=== PATIENT | male | born 2000 | race Caucasian/White ===

== ENCOUNTER 2020-09-03 13:06 | Emergency (ER) | payer BC, SELFPAY ==
[2020-09-03 13:16] VITALS: BP 113/59; PULSE 73; RESP 16; TEMP 36.9; O2SAT 99
--- NOTE | 2020-09-03 13:39 | ED.URI ---
HPI - URI/Sore Throat General Chief Complaint: Upper Respiratory Infection Stated Complaint: FEVER/COUGH/CHEST PAIN/CONGESTION Source: patient and RN notes reviewed Limitations: no limitations History of Present Illness HPI Narrative: The patient, previously mostly healthy, presents with a 4-day history of cough, fever measured to 101 and chest pains that have since resolved. He has been half vaccinated; no chest pain now,N/V/D, S OB, earache, loss of taste or smell. Symptoms are mild, associated with slight congestion; he declines PCR testing [referring to his mother]. Related Data Allergies Allergy/AdvReac Type Severity Reaction Status Date / Time tramadol Allergy Unknown seizure Verified 04/30/20 13:46 No Known Allergies Allergy Verified 12/31/15 09:11 Review of Systems Review of Systems: Narrative: General/Constitutional: No weight loss, EARLIER fever Eyes: N0: Redness,discharge Ears/Nose/Throat: No: Epistaxis,ear discharge Respiratory: Denies: Hemoptysis Gastrointestinal: No Vomiting, Bleeding-rectal Skin: No Lumps, eruption Neurologic: No Focal Weakness,Sz Hematologic: Denies: Petechiae/Purpura Psychiatric: No: Suicida ideationl All Other Systems: Reviewed and Negative PMFSH Past Medical History Medical History (Updated 09/03/20 @ 13:43 by Arpit Cui MD) ADD (attention deficit disorder) without hyperactivity Anxiety disorder STD (sexually transmitted disease) Surgical History Surgical History H/O shoulder surgery Hx of appendectomy (~2007) Family History Family History Grandparent Family history of headache disorder Mother Patient's mother is in good health Sibling Patient's sister is in good health Social History Social History (Updated 04/30/20 @ 13:48 by Jessie Cervantes CMA) Smoking status: Never smoker Second hand tobacco smoke exposure: No Alcohol intake: never Gender identity (if verbalized by the patient): Male Exam Narrative: Exam Narrative: General Appearance: Well appearing, Well nourished EYE: PERRLA, Conjunctiva clear Ears: Auditory canal normal, TM normal Nose: Rhinorrhea, Mucousal erythema Mouth/Throat: MM moist, Uvula midline, Pharyngeal erythema Neck: Supple, No adenopathy Respiratory: No respiratory distress, Breath sounds equal, Clear to auscultation Cardiovascular: RRR, No JVD Musculoskeletal: Non tender, Normal strength Skin: Warm, Dry Neurological: A&O x3, CN II-XII intact Psychiatric: Normal mood, Normal affect Course Vital Signs Vital signs: Vital Signs Temperature 98.4 F 09/03/20 13:16 Pulse Rate 73 09/03/20 13:16 Respiratory Rate 16 09/03/20 13:16 Blood Pressure 113/59 L 09/03/20 13:16 Pulse Oximetry 99 09/03/20 13:16 Temperature 98.4 F 09/03/20 13:16 Pulse Rate 73 09/03/20 13:16 Respiratory Rate 16 09/03/20 13:16 Blood Pressure 113/59 L 09/03/20 13:16 Pulse Oximetry 99 09/03/20 13:16 MDM - URI/Sore Throat Lab Data Labs: Lab Results 09/03/20 Range/Units 13:20 POC SARS CoV-2 Ag Negative (Negative) Discharge Plan Discharge Clinical Impression: Upper respiratory infection Qualifiers: URI type: unspecified URI Qualified Code(s): J06.9 - Acute upper respiratory infection, unspecified Patient Disposition: Home, Self-Care Condition: Stable Instructions: Acute Bronchitis (ED) Prescriptions: New azithromycin 250 mg tablet See Rx Instructions .ROUTE .COMPLEX Qty: 6 RF: 0 codeine-guaifenesin 10-100 mg/5 mL liquid 7.5 ml PO Q6H PRN (Reason: cough) Qty: 118 RF: 0 azelastine 137 mcg (0.1 %) aerosol,spray 137 mcg NASAL Q12H Qty: 30 RF: 0 No Action dextroamphetamine-amphetamine [Adderall XR] 20 mg capsule,extended release 24hr 20 mg PO QAM Qty: 30 RF: 0 Other Ambulatory Orders: SARS-CoV-2 RNA, Qual RT-PCR (Routine) Locatio
== END 2020-09-03 13:48 | disposition home or self-care (01) ==
PROVIDERS: Emergency Provider Emergency Medicine; PCP Family Medicine
DX: J06.9 Acute upper respiratory infection, unspecified (principal); Z20.822 Contact with and (suspected) exposure to COVID-19
CPT/HCPCS: 87426; 99213; C9803; G0463

== ENCOUNTER 2022-11-06 15:20 | Emergency (ER) | payer BC, SELFPAY ==
--- NOTE | ~2022-11-06 | XR_ITS ---
EXAM: XR heel RT min 2V DATE: 11/06/2022 15:50 HISTORY: jumped off retaining wall 3 weeks ago . COMPARISON: None available. FINDINGS: Normal mineralization. No fracture or dislocation. No lytic or blastic lesion. Joint space s are maintained. No erosion or periosteal change. Soft tissues within normal limits. IMPRESSION: No acute osseous finding in the right heel. Reviewed, dictated and finalized at location K.
[2022-11-06 15:35] VITALS: BP 133/93; PULSE 119; RESP 16; TEMP 36.9; O2SAT 99
--- NOTE | 2022-11-06 16:04 | ED.EXTPRO ---
HPI - Extremity Problem General Chief complaint: Extremity Problem,Nontraumatic Stated complaint: Heel pain Time Seen by Provider: 11/06/22 16:05 Source: patient, RN notes reviewed and old records reviewed Mode of arrival: ambulatory Limitations: no limitations History of Present Illness HPI Narrative: 22-year-old male presents to the [facility] with complaints of right heel pain after jumping off a retaining wall and landing flat foot on his right foot 3 weeks ago. For several days he has had extreme pain, taken ibuprofen. States the pain has improved, worse when he walks on it. States it is worse in the morning. No bruising or swelling noted Related Data Home Medications Medication Instructions Recorded Confirmed No Home Medications 11/06/22 11/06/22 Allergies Allergy/AdvReac Type Severity Reaction Status Date / Time tramadol Allergy Unknown seizure Verified 11/06/22 15:43 Review of Systems Review of Systems: All systems reviewed & are unremarkable except as noted in HPI and below Constitutional: Constitutional: Reports no additional constitutional complaints Eyes: Eyes: Reports no additional eye complaints ENT: Reports system reviewed and no additional complaints, except as documented Cardiovascular: Cardiovascular: Reports no additional cardiovascular complaints, Denies chest pain and Denies dyspnea Respiratory: Respiratory: Reports no additional respiratory complaints, Denies chest congestion, Denies cough and Denies dyspnea Gastrointestinal: Gastrointestinal: Reports no additional gastrointestinal complaints, Denies abdominal pain, Denies nausea and Denies vomiting Musculoskeletal: Musculoskeletal: Reports as per HPI and Reports arthralgias (Right calcaneus) Integumentary/Breasts: Skin/Breast: Reports system reviewed and no additional complaints, except as docu Neurologic: Reports system reviewed and no additional complaints, except as documented Psychiatric: Psychiatric: Reports no additional psychiatric complaints Allergic/Immunologic: Allergic/Immunologic: Reports no additional allergic/immunologic complaints [facility] Past Medical History Medical History ADD (attention deficit disorder) without hyperactivity Anxiety disorder STD (sexually transmitted disease) URI (upper respiratory infection) Surgical History Surgical History H/O shoulder surgery Hx of appendectomy (~2007) Family History Family History Grandparent Family history of headache disorder Mother Patient's mother is in good health Sibling Patient's sister is in good health Social History Social History Smoking status: Never smoker Second hand tobacco smoke exposure: No Alcohol intake: never Occupation/Education: student Gender identity (if verbalized by the patient): Male Comments At the time of my signature, I reviewed and agree with the nursing past medical, surgical, social, and family history. There is no relevant family history pertinent to the patient complaint. Exam Const: General: cooperative, healthy appearing, comfortable, no acute distress, well developed, alert and well nourished Nutritional Appearance: well nourished Orientation/consciousness: patient oriented x3 Limitations: no limitations HENMT: Head: normal to inspection Ears: hearing grossly normal bilaterally and external ears normal Face/Nose/Sinus: Normal external nose present, Normal nares present, Normal nasal mucous membranes and turbinates present, normal facial exam and face symmetric Face and sinus: normal facial exam and face symmetric Eyes: General: appearance normal, both eyes and all related structures Alignment and Position: alignment normal Periorbital: periorbital findings normal Pupils: Equal, round and reacti
== END 2022-11-06 16:48 | disposition home or self-care (01) ==
PROVIDERS: Emergency Provider Nurse Practitioner; PCP Family Medicine
DX: S90.31XA Contusion of right foot, initial encounter (principal); W17.89XA Other fall from one level to another, initial encounter
CPT/HCPCS: 73650; 99213; G0463

== ENCOUNTER 2024-06-13 11:42 | Outpatient (CLI) | payer OTHER, SELFPAY ==
--- OUTSIDE RECORDS SUMMARY | 2024-06-13 13:05 | XMS_ITS | Clinical Summary ---
Author Organization [facility] Address [address] [place] [address] Care Team Providers Care Information Technology Assistant Name Role Phone Alia Fuentes MD Primary Care Provider [phone] Source Comments [facility],non-owned Affiliates and Associated Physician Practices is amultiple site organization consisting of ambulatory clinics and hospital sitesin [place], [place], [place] and [place]. This disclosure is being madepursuant to the Care Everywhere program and may not contain all information available regarding this patient. Last updated 17.[facility] [employer] Allergies Active Allergy Reactions Criticality Noted Date Comments Tramadol Seizures High 10/25/2017 Medications * Be aware that medications may not be up to date on this document. Alwaysverify current medications with the patient. lidocaine visc 2%-diphenhydrami ne 2.5mg/ml-alum&mg hydroxide 400/400 oral susp 1:1:1 suspensionIndica tions:Strep pharyngitis 5 mL every 6 hours as needed Swish and Gargle Q 4-6 hours as needed for sore throat 120 mL 10/25/2017 Active Immunizations Immunization Administration Dates Next Due INFLUENZA VACCINE, QUADR. (F LUZONE; FLULAVAL; FLUARIX; AFLURIA QUADRIVALENT; 6MO+), 0.5 ML (IIV4) 01/09/2018 Social History Tobacco Use Types Packs/Day Years Used Date Smoking Tobacco: Never Smokeless Tobacco: Never Comments:non smoking househo ld Sex and Gender Information Value Date Recorded Sex Assigned at Not on file Legal Sex Male 11:44 PM CDT Gender Identity Not on file Sexual Orientation Not on file Last Filed Vital Signs Vital Sign Reading Time Taken Comments Blood Pressure 118/72 10/25/2017 10:19 AM CDT Pulse 59 10/25/2017 10:19 AM CDT Temperature 36.8 C (98.2 F) 10/25/2017 10:19 AM CDT Respiratory Rate 16 10/25/2017 10:19 AM CDT Oxygen Saturation - - Inhaled Oxygen Concentration - - Weight 79.4 kg (175 lb) 10/25/2017 10:19 AM CDT Height 180.3 cm (5' 11 ) 10/25/2017 10:19 AM CDT Body Mass Index 24.41 10/25/2017 10:19 AM CDT Plan of Treatment Health Maintenance Due Date Last Done Comments HIV SCREENING 2013 HPV VACCINE (1 - Male 3-dose series) 2013 HEPATITIS C SCREENING 01/29/2016 DTAP/TDAP/TD VACCINES (1 - Tdap) 2017 HEPATITIS B VACCINE (1 of 3 - 19+ 3-dose series) 2017 COVID-19 VACCINE (1 - 2023-2 5 season) 2023 DEPRESSION SCREENING 02/29/2024 INFLUENZA VACCINE (Season Ended) 2024 01/10/20 18 ZOSTER VACCINE (1 of 2) 02/03/2048 HIB VACCINE Aged Out No longer eligi ble based on patient's age to complete this topic MENINGOCOCCAL (Group B) VACC INE SHARED DECISION-MAKING Aged Out No longer eligibl e based on patient's age to complete this topic MENINGOCOCCAL GROUPS A/C/Y/W VACCINE Aged Out No longer eligible b ased on patient's age to complete this topic PNEUMOCOCCAL VACCINE Aged Out No long er eligible based on patient's age to complete this topic Insurance Care Teams Information Technology Assistant Relationship Specialty Start Date End Date Alia Fuentes MD [address] [place], [place] [id number] PCP - General Family Medicine 10/25/17
--- OUTSIDE RECORDS SUMMARY | 2024-06-13 13:05 | XMS_ITS | Clinical Summary ---
Author Organization [facility] Address [address] [place] [id number] Care Team Providers Care Transportation Dispatch Manager Name Role Phone Unavailable Primary Care Provider Unavailabl e Social History Tobacco Use Types Packs/Day Years Used Date Smoking Tobacco: Never Assessed Sex and Gender Information Value Date Recorded Sex Assigned at Not on file Legal Sex Male 4:24 PM CDT Gender Identity Not on file Sexual Orientation Not on file Plan of Treatment Health Maintenance Due Date Last Done Comments Annual Physical 2001 HPV Vaccines (1 - Male 3-dos e series) 2013 Hepatitis C 02/03/2016 DTaP, Tdap and Td Vaccines ( 1 - Tdap) 2017 Hepatitis B Vaccines (1 of 3 - 19+ 3-dose series) 2017 COVID-19 Vaccine ( - 2023-2 5 season) 2023 Meningococcal B Vaccine Aged Out No l onger eligible based on patient's age to complete this topic Meningococcal Vaccine Aged Out No adry minesh eligible based on patient's age to complete this topic Pneumococcal Vaccine: Pediat rics (0 to 5 Years) and At-Risk Patients (6 to 49 Years) Aged Out No longer eligible b ased on patient's age to complete this topic RSV Immunizations Under 20 Months Aged Out No longer eligible based on patient's age to complete this topic
[2024-06-13 13:17] LABS: Basophils Absolute Auto 0.1 K/mm3 (0.0-0.1); Basophils Percent Auto 0.9 % (0.2-1.2); Eosinophils Absolute Auto 0.2 K/mm3 (0-0.3); Eosinophils Percent Auto 3.1 % (0-4.4); Hematocrit 44.5 % (42.0-52.0); Hemoglobin 14.9 g/dL (14.0-18.0); Immature Granulocyte Absolute 0.02 K/mm3 (0.00-0.031); Immature Granulocyte Percent A 0.3 % (0-0.5); Lymphocytes Absolute Auto 2.33 K/mm3 (0.9-3.2); Lymphocytes Percent Auto 34.5 % (18.3-44.2); Mean Corpuscular HGB Conc 33.5 g/dl (32-36); Mean Corpuscular Hemoglobin 33.4 pg (26-34); Mean Corpuscular Volume 99.8 fl (80-100); Mean Platelet Volume 9.9 fl (7.4-10.4); Monocytes Absolute Auto 0.9 K/mm3 (0.1-0.6); Monocytes Percent Auto 13.5 % (2.6-8.5); Neutrophils Absolute Auto 3.2 K/mm3 (1.3-6.7); Neutrophils Percent Auto 47.7 % (45.5-73.1); Platelet Count Result 274 k/mm3 (150-375); Red Blood Count 4.46 M/mm3 (4.6-6.20); Red Cell Distribution Width 11.7 % (11.5-14.5); White Blood Count 6.8 K/mm3 (4.5-10.0)
[2024-06-13 14:03] LABS: Alanine Aminotransferase 118 U/L (6-50); Albumin Level 4.9 g/dL (3.5-5.1); Alkaline Phosphatase 53 U/L (38-126); Anion Gap 13 mmol/L (4-12); Aspartate Amino Transferase 94 U/L (17-59); Bilirubin,Total 0.5 mg/dL (0.2-1.3); Blood Urea Nitrogen 17 mg/dL (9-20); Calcium 9.2 mg/dL (8.4-10.2); Carbon Dioxide 26 mmol/L (22-30); Chloride 100 mmol/L (98-107); Cholesterol 286 mg/dL (0-200); Estimated Glomerular Filt Rate > 60; Glucose 88 mg/dL (65-110); HDL Direct 73 mg/dL; Potassium 4.1 mmol/L (3.4-5.0); Sodium 139 mmol/L (137-145); Triglycerides 260 mg/dL (<150)
[2024-06-13 14:16] LABS: LDL Cholesterol Direct 158 mg/dL
== END 2024-06-13 11:43 | disposition home or self-care (01) ==
LOC: ANHGOSHLAB 11:43
PROVIDERS: PCP Family Medicine; Visit Provider Student in an Organized Health Care Education/Training Program
DX: Z13.29 Encounter for screening for other suspected endocrine disorder (principal); Z13.220 Encounter for screening for lipoid disorders; F10.10 Alcohol abuse, uncomplicated
CPT/HCPCS: 36415; 80053; 80061; 84443; 85025

== ENCOUNTER 2024-08-08 10:17 | Outpatient (CLI) | payer OTHER, SELFPAY ==
--- NOTE | ~2024-08-08 | US_ITS ---
Limited Abdominal Sonogram: Real-time sonographic imaging of the right upper quadrant was performed. Clinical History: Abnormal findings of blood chemistry Findings: The liver appears echogenic, with no evidence of mass lesion or bile duct dilatation. Main portal vein demonstrates normal direction of flow. The gallbladder is well distended, and appears no rmal with no evidence of gallstone or wall thickening. The common bile duct measures 3 mm. The visua lized pancreas, aorta, and IVC are unremarkable. Impression: Diffuse fatty infiltration of the liver. Reviewed, dictated and finalized at location M. Impression: Diffuse fatty infiltration of the liver.
--- OUTSIDE RECORDS SUMMARY | 2024-08-08 11:50 | XMS_ITS | Clinical Summary ---
Author Organization [facility] Address [address] [place] [address] Care Team Providers Care Freight Broker Name Role Phone Alia Fuentes MD Primary Care Provider [phone] Source Comments [facility],non-owned Affiliates and Associated Physician Practices is amultiple site organization consisting of ambulatory clinics and hospital sitesin [place], [place] and [place]. This disclosure is being madepursuant to the Care Everywhere program and may not contain all information available regarding this patient. Last updated 17.[facility] [employer] Allergies Active Allergy Reactions Criticality Noted Date [...] 10:19 AM CDT Height 180.3 cm (5' 11) 10/25/2017 10:19 AM CDT Body Mass Index [...] to complete this topic Insurance Care Teams Freight Broker Relationship Specialty Start Date End Date Alia Fuentes MD [address] [place], [place] [id number] PCP - General Family Medicine 10/25/17
== END 2024-08-08 10:18 | disposition home or self-care (01) ==
PROVIDERS: PCP Family Medicine; Visit Provider Student in an Organized Health Care Education/Training Program
DX: R79.89 Other specified abnormal findings of blood chemistry (principal); K76.0 Fatty (change of) liver, not elsewhere classified
CPT/HCPCS: 76705